=== PATIENT | male | born 1985 | race African-American/Black ===

== ENCOUNTER 2018-03-17 20:12 | Emergency (ER) | payer SELFPAY ==
[~2018-03-17] VITALS: Ht 160 cm; Wt 63.5 kg
[2018-03-17 20:32] VITALS: BP 138/88
[2018-03-17] MEDS ORDERED: methylPREDNISolone SOD SUCC 125 MG/2 ML VL IM ONE (21:45)
[2018-03-17] MEDS ORDERED: BENZOCAINE (DENTAL) 20 % SPRAY 60ML MT ONE (21:45)
[2018-03-17] MEDS ORDERED: cefTRIAXone SOD 1,000 MG VL IM ONE (21:45)
== END 2018-03-17 23:14 | disposition home or self-care (01) ==
LOC: ER 20:17
DX: K04.7 Periapical abscess without sinus (principal)
CPT/HCPCS: 41800; 96372; 99283; J0696; J2930